=== PATIENT | female | born 1950 | race Caucasian/White ===

== ENCOUNTER → 2016-11-10 | Outpatient (CLI) | payer OTHER ==
[~2016-11-10] MED LIST: BISOPROLOL AND1 TA1 PO; CALCIUM 600 W/D1 TAB PO; LASIX40 MG PO; LEVOTHYROXIN0.088 MG PO; MACROBID100 M1 PO; MICRO-K10 MEQ PO; NEXIUM40 MG PO; NORVASC5 MG PO; PRILOSEC20 MG PO; SYNTHROID,LEVO88 MCG PO; SYNTHROID0.088 MG PO; ZIAC 2.5 MG-6.21 TAB PO
== END | disposition home or self-care (01) ==
LOC: RAD 14:41
DX: M77.9 Enthesopathy, unspecified (principal); M25.512 Pain in left shoulder

== ENCOUNTER → 2018-06-16 | Day surgery (SDC) | payer OTHER, MEDICARE ==
[~2018-06-16] VITALS: Ht 154.9 cm; Wt 108.9 kg
[~2018-06-16] MED LIST changes: +LEVOTHYROXINE100 MC1 PO; +OMEPRAZOLE MAGN20 MG PO
--- NOTE | ~2018-06-16 | O ---
[place], [place] OPERATIVE NOTE [id number] UNIT #: [id number] ROOM: DOCTOR: JACQUELYN SUAREZ MD BIRTHDATE: [birth year] DOS: 06/16/2018 IDENTIFICATION: This is a 68-year-old patient who presented with her indigestion, dyspepsia, reflux symptomatology on Nexium, history of diarrhea, Nexium had to be stopped, and Prilosec 20 mg started. ALLERGIES: No known medication. PAST MEDICAL HISTORY: Hypothyroidism, hypertension, and obesity. HISTORY OF PRESENT ILLNESS: She drinks two sodas daily. PROCEDURE: Today's procedure part of investigation is panendoscopy plus biopsy. PREMEDICATION: Propofol. SCOPE: Olympus forward-viewing gastroscope Q10 video. REPORT: After putting the patient in left lateral position and application of lubricant to the scope, the scope was then introduced. Thereafter, under direct visualization, I advanced through the length of the esophagus without difficulty. In the gastric pouch, hiatal hernia was noticed. Bile reflux noticed. Gastric erosions identified, photographed and biopsied. Duodenal bulb, second and third part within normal limits. The patient extubated, tolerated the procedure well. IMPRESSION: Bile reflux esophagitis, hiatal hernia, gastritis, bile reflux gastritis, gastric erosions. PLAN AND DISCUSSION: Increasing the omeprazole to 20 mg b.i.d. to see if she can tolerate elevation of the head off the bed 6 inch at all times. Gaviscon as antacid of choice and clinical reassessment. JACQUELYN SUAREZ MD CM:OPRECORD:OPERATIVE NOTE [id number] JACQUELYN SUAREZ MD 06/16/18 1408 interface
[2018-06-16 12:36] VITALS: BP 167/79
[2018-06-16 13:19] VITALS: BP 130/70
[2018-06-16 13:34] VITALS: BP 139/69
[2018-06-16 13:53] VITALS: BP 138/71
[2018-06-16 13:57] VITALS: BP 132/75
== END | disposition home or self-care (01) ==
LOC: SDC 06-15 09:30
DX: K29.50 Unspecified chronic gastritis without bleeding (principal); K25.9 Gastric ulcer, unspecified as acute or chronic, without hemorrhage or perforation; K21.0 Gastro-esophageal reflux disease with esophagitis; K44.9 Diaphragmatic hernia without obstruction or gangrene; I10 Essential (primary) hypertension; E66.01 Morbid (severe) obesity due to excess calories; M19.90 Unspecified osteoarthritis, unspecified site; M06.9 Rheumatoid arthritis, unspecified; E03.9 Hypothyroidism, unspecified; J45.909 Unspecified asthma, uncomplicated; Z98.890 Other specified postprocedural states; Z96.653 Presence of artificial knee joint, bilateral; Z87.891 Personal history of nicotine dependence; Z68.42 Body mass index [BMI] 45.0-49.9, adult; Z88.2 Allergy status to sulfonamides; Z90.49 Acquired absence of other specified parts of digestive tract; Z91.048 Other nonmedicinal substance allergy status; Z79.899 Other long term (current) drug therapy; Z82.49 Family history of ischemic heart disease and other diseases of the circulatory system

== ENCOUNTER → 2023-01-12 | Day surgery (SDC) | payer MEDICARE ==
[~2023-01-12] VITALS: Ht 154.9 cm; Wt 113.4 kg
[2023-01-12 09:00] VITALS: BP 150/75
[2023-01-12 11:03] VITALS: BP 123/58
[2023-01-12 11:15] VITALS: BP 131/67
[2023-01-12 11:28] VITALS: BP 121/59
== END | disposition home or self-care (01) ==
LOC: SDC 01-07 14:00
PROVIDERS: ATTEND Ophthalmology
DX: H25.812 Combined forms of age-related cataract, left eye (principal); I10 Essential (primary) hypertension; K21.9 Gastro-esophageal reflux disease without esophagitis; M06.9 Rheumatoid arthritis, unspecified; Z96.653 Presence of artificial knee joint, bilateral; Z79.899 Other long term (current) drug therapy

== ENCOUNTER → 2023-02-16 | Day surgery (SDC) | payer MEDICARE ==
[~2023-02-16] VITALS: Ht 154.9 cm; Wt 113.4 kg
[2023-02-16 12:25] VITALS: BP 125/66
[2023-02-16 13:12] VITALS: BP 133/77
[2023-02-16 13:27] VITALS: BP 118/64
[2023-02-16 13:42] VITALS: BP 113/67
== END | disposition home or self-care (01) ==
LOC: SDC 02-14 08:00
PROVIDERS: ATTEND Ophthalmology
DX: H25.811 Combined forms of age-related cataract, right eye (principal); I10 Essential (primary) hypertension; K21.9 Gastro-esophageal reflux disease without esophagitis; E03.9 Hypothyroidism, unspecified; M19.90 Unspecified osteoarthritis, unspecified site; Z98.890 Other specified postprocedural states; Z88.2 Allergy status to sulfonamides

== ENCOUNTER 2024-08-17 08:05 | Emergency (ER) | payer MEDICARE, OTHER ==
[~2024-08-17] VITALS: Ht 154.9 cm; Wt 98.4 kg
[2024-08-17 08:22] VITALS: BP 148/79
[2024-08-17] MEDS ORDERED: Ondansetron Hydrochloride 4 MG TAB SL ONE (08:40)
[2024-08-17] MEDS ORDERED: SODIUM CHLORIDE 0.9% 1,000 ML IV ONE (08:40)
[2024-08-17 08:53] LABS: BASO % 0.3 % (0.0-1.0); EOS # 0.1 10*3/uL (0.0-0.4); EOS % 1.4 % (1.0-4.0); HEMATOCRIT 44.7 % (37.0-47.0); MEAN CELL VOLUME 92.4 fl (81.0-99.0); MEAN CORPUSCULAR HGB 30.4 pg (27.0-31.0); MEAN CORPUSCULAR HGB CONC 32.9 g/dl (33.0-37.0); MEAN PLATELET VOLUME 9.6 fl (9.6-12.3); MONO # 0.4 10*3/uL (0.1-1.0); MONO % 7.1 % (3.0-9.0); NEUT # 4.3 10*3/uL (2.3-7.9); NEUT % 73.5 % (47.0-73.0); PLATELET COUNT AUTOMATED 185 10*3/uL (130-400); RED BLOOD COUNT 4.84 10*6/uL (4.10-5.10); RED CELL DISTRI WIDTH 12.7 % (0-14.5); WHITE BLOOD COUNT 5.8 10*3/uL (4.8-10.8)
[2024-08-17 09:19] LABS: ALKALINE PHOSPHATASE 96 U/L (46-116); BUN 20 mg/dl (9-23); CHLORIDE 98 mmol/L (98-107); LIPASE 27 U/L (12-53); POTASSIUM 3.4 mmol/L (3.4-5.1); SGPT/ALT 13 U/L (5-49); TOTAL PROTEIN 7.1 gm/dL (6.0-8.0)
[2024-08-17 10:09] LABS: BILIRUBIN Negative (Negative); BLOOD Negative (Negative); CLARITY Clear (Clear); COLOR Yellow (Yellow); GLUCOSE Negative (Negative); KETONE Negative (Negative); LEUKO ESTERASE 3+ (Negative); NITRITE Negative (Negative)
[2024-08-17 11:07] LABS: BACTERIA 2+; WBC TNTC wbc/hpf (0-5)
[2024-08-17] MEDS ORDERED: CIPRO500 MG PO (11:23)
== END 2024-08-17 11:26 | disposition home or self-care (01) ==
LOC: ED 08:05
PROVIDERS: Internal Medicine
DX: N39.0 Urinary tract infection, site not specified (principal); R11.2 Nausea with vomiting, unspecified; Z88.2 Allergy status to sulfonamides; Z91.048 Other nonmedicinal substance allergy status; Z79.899 Other long term (current) drug therapy; Z90.89 Acquired absence of other organs; Z90.49 Acquired absence of other specified parts of digestive tract; Z96.653 Presence of artificial knee joint, bilateral